=== PATIENT | female | born 1965 | race Caucasian/White ===

== ENCOUNTER 2017-10-14 11:06 | Emergency (ER) | payer OTHER ==
[~2017-10-14] VITALS: Ht 157.5 cm; Wt 79.0 kg
[2017-10-14 11:10] VITALS: Ht 157.5 cm; Wt 79.0 kg
[2017-10-14] MEDS ORDERED: SODIUM CHLORIDE 0.9% 1000ML 500 ML IV STA (11:24)
[2017-10-14] MEDS ORDERED: DOCUSATE SODIUM/SENNA 50/8.6MG TAB PO ONE (11:30)
[2017-10-14] MEDS ORDERED: SUMA100T16 PO (11:35)
[2017-10-14] MEDS ORDERED: LINA1CAP2 PO (11:35)
[2017-10-14] MEDS ORDERED: CYCL10TA6 PO (11:35)
[2017-10-14] MEDS ORDERED: TOPI50TA16 PO (11:35)
[2017-10-14] MEDS ORDERED: PRLSR20 PO (11:35)
[2017-10-14] MEDS ORDERED: MELO7.5T5 PO (11:35)
[2017-10-14] MEDS ORDERED: PROP80TA2 PO (11:35)
[2017-10-14] MEDS ORDERED: EFF75 PO (11:35)
[2017-10-14 11:51] LABS: BASO % 0.6 %; BASO ABS # 0.03 K/uL (0-0.2); EOS % 2.7 %; EOS ABS # 0.13 K/uL (0-0.5); HEMATOCRIT 39.5 % (37-47); HEMOGLOBIN 13.1 g/dL (12.0-16.0); IG# 0.02 K/uL (0.00-0.02); LYMPH % 18.5 %; MEAN CELL VOLUME 92.7 fL (80-100); MEAN CORPUSCULAR HEMOGLOBIN 30.8 pg (25-34); MEAN CORPUSCULAR HGB CONC 33.2 g/dl (32-36); MEAN PLATELET VOLUME 9.7 fL (7.4-10.4); MONO % 8.2 %; NEUT % 69.6 %; NEUT ABS # 3.39 K/uL (1.4-6.5); PLATELET COUNT 242 K/uL (130-400); RED CELL DISTRIBUTION WIDTH CV 13.6 % (11.5-14.5); RED CELL DISTRIBUTION WIDTH SD 45.3 fL (36.4-46.3); WHITE BLOOD COUNT 4.87 K/uL (4.8-10.8)
--- NOTE | 2017-10-14 11:57 | DIAGNOSTIC IMAGING REPORT ---
CHEST ONE VIEW PORTABLE HISTORY: 52 years-old Female ABDOMINAL PAIN/GI acute generalized abdominal pain COMPARISON: None available TECHNIQUE: Portable AP view of the chest FINDINGS: Cardiac silhouette is within normal limits. Linear subsegmental lateral left midlung and left basilar opacities are compatible with atelectasis/scarring. No pneumothorax, pleural effusion, focal airspace consolidation or overt pulmonary edema. Bones of the chest appear grossly intact. Cholecystectomy clips noted. IMPRESSION: No acute process. The above report was generated using voice recognition software. It may contain grammatical, syntax or spelling errors. Electronically signed by: Cosme Baeza M.D. 10/14/2017 11:55 AM Dictated Date/Time: 10/14/2017 11:54 AM
[2017-10-14] MEDS ORDERED: OPTIRAY 320 IV PRN (12:00)
[2017-10-14] MEDS ORDERED: ACETAMINOPHEN 500 MG TAB PO STA (12:06)
[2017-10-14 12:14] LABS: CALCIUM 7.9 mg/dl (8.5-10.1); CREATININE 0.86 mg/dl (0.60-1.20); POTASSIUM 4.1 mmol/L (3.5-5.1)
[2017-10-14 12:15] LABS: TOTAL PROTEIN 6.4 gm/dl (6.4-8.2)
[2017-10-14] MEDS ORDERED: DICYCLOMINE HCL 10 MG/ML 2 ML AMP IM ONE (12:15)
--- NOTE | 2017-10-14 13:45 | EMERGENCY ROOM VISIT NOTE ---
History Report prepared by Zachary: Gonzalo Cox Under the Supervision of: Dr. Joaquín Guidry M.D. First contact with patient: 11:16 Chief Complaint: GI ASSESSMENT Stated Complaint: NOT BEEN ABLE TO HAVE BOWEL MOVEMENT IN A MONTH History of Present Illness The patient is a 52 year old female who presents to the Emergency Room with complaints of constant constipation beginning a month ago. The patient states that she has not been able to have a bowel movement for the last month. She notes that she went to the emergency department at the end of September and had lab work and imaging done. She reports that she was diagnosed with constipation and had two enemas done while in the emergency department with no relief of her constipation. She reports that she has also tried Dulcolax and drinking prune juice with no relief of her constipation. She also complains of vomiting, abdominal pain, back pain, and a decreased appetite. She denies any urinary symptoms, fever, and abdominal distension. The patient states that she has a history of diverticulitis. She notes that she also has a family history of diverticulitis. She rates her pain as a 10/10. Source of History: patient Onset: a month ago Position: abdomen Symptom Intensity: 10/10 Quality: other (constipation) Timing: constant Associated Symptoms: + vomiting, + abdominal pain, + back pain, No fevers, No urinary symptoms Note: The patient also complains of a decreased appetite. She denies any abdominal distension. Review of Systems See HPI for pertinent positives & negatives. A total of 10 systems reviewed and were otherwise negative. Past Medical & Surgical Medical Problems: (1) Constipation (2) Diverticulitis Family History FH: diverticulitis Social History Smoking Status: Never Smoker Marital Status: single Occupation Status: unemployed Current/Historical Medications Scheduled Cyclobenzaprine Hcl (Flexeril), 10 MG PO HS Linaclotide (Linzess), 290 MCG PO DAILY Meloxicam (Mobic), 7.5 MG PO DAILY Omeprazole (Prilosec), 20 MG PO DAILY Ondasetron Odt (Zofran Odt), 4-8 MG SL Q6H Propranolol (Inderal), 80 MG PO DAILY Sennosides-Docusate Sodium (Senokot S), 2 TAB PO BID Sumatriptan Succinate (Imitrex), 100 MG PO PRN Topiramate (Topamax), 50 MG PO BID Venlafaxine Hcl (Effexor), 75 MG PO DAILY Allergies Coded Allergies: Ketorolac Tromethamine (Unverified Allergy, Intermediate, MIGRAINE, ) Physical Exam Vital Signs Date Time Temp Pulse Resp B/P (MAP) Pulse Ox O2 Delivery O2 Flow Rate FiO2 10/14/17 15:46 36.4 53 18 143/87 98 10/14/17 15:39 53 18 143/87 98 Room Air 10/14/17 14:28 58 16 153/94 98 Room Air 10/14/17 13:22 59 16 110/78 98 Room Air 10/14/17 11:10 36.4 89 18 116/85 97 Room Air Physical Exam GENERAL: Patient is in no acute distress. HEENT: No acute trauma, normocephalic atraumatic, mucous membranes moist, no nasal congestion, no scleral icterus. NECK: No stridor, no adenopathy, no meningismus, trachea is midline. LUNGS: Clear to auscultation bilaterally, no wheeze, no rhonchi, breath sounds equal. HEART: Without murmurs gallops or rubs, regular rate and rhythm. ABDOMEN: Soft, moderately tender in both lower quadrants, bowel sounds positive , no hernias, no peritonitis. EXTREMITIES: No cyanosis or edema, full range of motion of all the joints without pain or difficulty, no signs for acute trauma. NEUROLOGIC: Oriented x 3, no acute motor or sensory deficits, no focal weakness. SKIN: No rash, no jaundice, no diaphoresis. Medical Decision & Procedures ER Provider Diagnostic Interpretation: Radiology results as stated below per my review and radiologist interpretation: CHEST ONE VIEW PORTABLE FINDINGS: Cardiac silhouette is within normal limits. Linear subsegmental lateral left midlung and left basilar opacities are compatible with atelectasis/scarring. No pneumothorax, pleural effusion, focal airspace consolidation or overt pulmonary edema. Bones of the chest appear grossly intact. Cholecystectomy clips noted. IMPRESSION: No acute process. The above report was generated using voice recognition software. It may contain grammatical, syntax or spelling errors. Electronically signed by: Cosme Baeza M.D. 10/14/2017 11:55 AM ABDOMEN AND PELVIS CT WITH IV AND ORAL CONTRAST FINDINGS: Linear subsegmental atelectasis/scarring of the lung bases. No pneumatosis or pneumoperitoneum. Imaged inferior cardiac chambers are unremarkable. Prior cholecystectomy. Liver, spleen, pancreas and adrenal glands are within normal limits. Kidneys, ureters and bladder are unremarkable. Uterus and right adnexa are within normal limits. 8 mm cyst about the left ovary. Aorta is normal in course and caliber without aneurysm. No bulky adenopathy. Small duodenal diverticulum. No bowel obstruction. Extensive colonic diverticulosis without diverticulitis. Mild wall thickening throughout the sigmoid colon suggests chronic hypertrophy changes. Mild wall thickening or partial distention of the transverse colon. No pericolonic inflammatory changes. Normal appendix. No ascites or mesenteric inflammatory changes. Small fat filled periumbilical hernia, diastases 1.4 cm. Soft tissues are within normal limits. Severe facet arthrosis at L5-S1. 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 IMPRESSION: 1. Underdistention or mild wall thickening of the transverse colon without associated pericolonic inflammatory changes. Correlate clinically to exclude a mild colitis. 2. Colonic diverticulosis without diverticulitis. 3. Normal appendix. 4. Prior cholecystectomy. Electronically signed by: Cosme Baeza M.D. 10/14/2017 2:49 PM Laboratory Results 10/14/17 11:36 Red Blood Count 4.26, Mean Corpuscular Volume 92.7, Mean Corpuscular Hemoglobin 30.8, Mean Corpuscular Hemoglobin Concent 33.2, Mean Platelet Volume 9.7, Neutrophils (%) (Auto) 69.6, Lymphocytes (%) (Auto) 18.5, Monocytes (%) (Auto) 8.2, Eosinophils (%) (Auto) 2.7, Basophils (%) (Auto) 0.6, Neutrophils # (Auto) 3.39, Lymphocytes # (Auto) 0.90, Monocytes # (Auto) 0.40, Eosinophils # (Auto) 0.13, Basophils # (Auto) 0.03 10/14/17 11:36 Test 10/14/17 11:36 10/14/17 12:20 White Blood Count 4.87 K/uL (4.8-10.8) Red Blood Count 4.26 M/uL (4.2-5.4) Hemoglobin 13.1 g/dL (12.0-16.0) Hematocrit 39.5 % (37-47) Mean Corpuscular Volume 92.7 fL (80-100) Mean Corpuscular Hemoglobin 30.8 pg (25-34) Mean Corpuscular Hemoglobin Concent 33.2 g/dl (32-36) Platelet Count 242 K/uL (130-400) Mean Platelet Volume 9.7 fL (7.4-10.4) Neutrophils (%) (Auto) 69.6 % Lymphocytes (%) (Auto) 18.5 % Monocytes (%) (Auto) 8.2 % Eosinophils (%) (Auto) 2.7 % Basophils (%) (Auto) 0.6 % Neutrophils # (Auto) 3.39 K/uL (1.4-6.5) Lymphocytes # (Auto) 0.90 K/uL (1.2-3.4) Monocytes # (Auto) 0.40 K/uL (0.11-0.59) Eosinophils # (Auto) 0.13 K/uL (0-0.5) Basophils # (Auto) 0.03 K/uL (0-0.2) RDW Standard Deviation 45.3 fL (36.4-46.3) RDW Coefficient of Variation 13.6 % (11.5-14.5) Immature Granulocyte % (Auto) 0.4 % Immature Granulocyte # (Auto) 0.02 K/uL (0.00-0.02) Anion Gap 4.0 mmol/L (3-11) Est Creatinine Clear Calc Drug Dose 72.8 ml/min Estimated GFR () 88.8 Estimated GFR (Non- 76.6 BUN/Creatinine Ratio 11.2 (10-20) Lactic Acid Level 1.5 mmol/L (0.4-2.0) Calcium Level 7.9 mg/dl (8.5-10.1) Magnesium Level 2.3 mg/dl (1.8-2.4) Total Bilirubin 0.2 mg/dl (0.2-1) Aspartate Amino Transf (AST/SGOT) 12 U/L (15-37) Alanine Aminotransferase (ALT/SGPT) 14 U/L (12-78) Alkaline Phosphatase 64 U/L (45-117) Total Protein 6.4 gm/dl (6.4-8.2) Albumin 3.0 gm/dl (3.4-5.0) Globulin 3.4 gm/dl (2.5-4.0) Albumin/Globulin Ratio 0.9 (0.9-2) Lipase 489 U/L (73-393) Urine Color YELLOW Urine Appearance CLEAR (CLEAR) Urine pH 7.0 (4.5-7.5) Urine Specific [place] 1.013 (1.000-1.030) Urine Protein NEG (NEG) Urine Glucose (UA) NEG (NEG) Urine Ketones NEG (NEG) Urine Occult Blood NEG (NEG) Urine Nitrite NEG (NEG) Urine Bilirubin NEG (NEG) Urine Urobilinogen NEG (NEG) Urine Leukocyte Esterase NEG (NEG) Laboratory results reviewed by me. Medications Administered Medications (Trade) Dose Ordered Sig/Brandon Route Start Time Stop Time Status Last Admin Dose Admin Sodium Chloride 500 ml @ 999 mls/hr Q31M STAT IV 10/14/17 11:24 10/14/17 11:54 DC 10/14/17 11:35 999 MLS/HR Senna/Docusate Sodium (Senokot S Tab) 2 tab NOW ONCE PO 10/14/17 11:30 10/14/17 11:31 DC 10/14/17 11:32 2 TAB Acetaminophen (Tylenol Tab) 1,000 mg NOW STAT PO 10/14/17 12:06 10/14/17 12:07 DC 10/14/17 12:15 1,000 MG Dicyclomine HCl (Bentyl Inj) 20 mg NOW ONCE IM 10/14/17 12:15 10/14/17 12:16 DC 10/14/17 12:17 20 MG ED Course 1118: The patient was evaluated in room C2. A complete history and physical exam was performed. 1124: Sodium Chloride 500 ml @ 999 mls/hr IV 1130: Senna/Docusate Sodium 2tab PO 1206: Acetaminophen 1000mg PO 1215: Bentyl Inj 20mg IM 1458: I reevaluated and updated the patient and her friends. I called out to [facility]. 1503: I discussed the patient's case with Dr. Lara - [facility]. She recommends a better bowel regimen. 1510: I performed a PDMP search on the patient. 1522: Reevaluated the patient. Discussed results and discharge instructions: She verbalized understanding and agreement. The patient is ready for discharge. Medical Decision Differential diagnoses include: diverticulitis, colitis, appendicitis, constipation, UTI, tumor, pancreatitis, hernia, and musculoskeletal pain. There is no leukocytosis or concerning anemia. No significant electrolyte abnormality, kidney failure or hepatitis. Lipase is slightly elevated but not high enough to diagnose pancreatitis. Urinalysis does not show infection. Lactic acid level is not elevated making bowel ischemia less likely. Chest film does not show pneumonia or free air. No mediastinal widening. Abdominal and pelvis CT shows some mild constipation, no bowel obstruction, no tumor or mass. There was some thickening of the transverse colon of unknown significance. No diverticulitis. Patient received IM Bentyl for discomfort. She was given oral Tylenol. She received IV saline and oral Senokot. I talked with the patient. I discussed the case with [facility] consultant. Patient is being discharged with a better bowel regimen. Tylenol for pain. Zofran for nausea. She will be on Senokot and MiraLAX. She is going to follow with GI, she will call on Monday to october be up her appointment. The patient was encouraged to return for fever or vomiting or worsening symptoms. At this point , the cause for her entire presentation is unclear. GI follow-up is recommended. [place] Drug Monitoring Program Search Results: patient reviewed within database, no issues identified Drug Monitoring Findings: The patient's last prescription was filled 07/23/2017. Medication Reconcilliation Current Medication List: was personally reviewed by me Blood Pressure Screening Patient's blood pressure: Elevated blood pressure Blood pressure disposition: Referred to PCP Consults Time Called: [phone] [facility] Phys[facility] Returned Call: [phone] I discussed the patient's case with Dr. Lara. She recommends a better bowel regimen. Impression Primary Impression: Lower abdominal pain Scribe Attestation The scribe's documentation has been prepared under my direction and personally reviewed by me in its entirety. I confirm that the note above accurately reflects all work, treatment, procedures, and medical decision making performed by me. Departure Information Dispostion Home / Self-Care Prescriptions Ondasetron Odt (ZOFRAN ODT) 4 Mg Tab 4-8 MG SL Q6H for Nausea, #15 TAB Prov: Joaquín Guidry M.D. 10/14/17 Sennosides-Docusate Sodium (SENOKOT S) 1 Tab Tab 2 TAB PO BID, #30 TAB 5 Refills Prov: Joaquín Guidry M.D. 10/14/17 Referrals No Doctor, Assigned (PCP) Forms HOME CARE DOCUMENTATION FORM, IMPORTANT VISIT INFORMATION Patient Instructions My [facility] Additional Instructions tart Senokot S--2 tab morning and night use miralax 1 heaping capfull in 8 oz of liquid 2x per day for now--may decrease to just 1 time per day as stools soften and become looser tylenol for pain zofran 1-2 tab every 6 hours for nausea return for fever or if worsening call GI monday to talk about getting your appointment moved up
--- NOTE | 2017-10-14 14:50 | DIAGNOSTIC IMAGING REPORT ---
ABDOMEN AND PELVIS CT WITH IV AND ORAL CONTRAST CT DOSE: 638.44 mGy.cm HISTORY: Acute generalized abdominal pain ABDOMINAL PAIN/GI--?DIVERTICULITIS--GIVE PO AND IV CONTRAST TECHNIQUE: Multiaxial CT images of the abdomen and pelvis were performed following the use of intravenous and oral contrast. A dose lowering technique was utilized adhering to the principles of ALARA. COMPARISON STUDY: None. FINDINGS: Linear subsegmental atelectasis/scarring of the lung bases. No pneumatosis or pneumoperitoneum. Imaged inferior cardiac chambers are unremarkable. Prior cholecystectomy. Liver, spleen, pancreas and adrenal glands are within normal limits. Kidneys, ureters and bladder are unremarkable. Uterus and right adnexa are within normal limits. 8 mm cyst about the left ovary. Aorta is normal in course and caliber without aneurysm. No bulky adenopathy. Small duodenal diverticulum. No bowel obstruction. Extensive colonic diverticulosis without diverticulitis. Mild wall thickening throughout the sigmoid colon suggests chronic hypertrophy changes. Mild wall thickening or partial distention of the transverse colon. No pericolonic inflammatory changes. Normal appendix. No ascites or mesenteric inflammatory changes. Small fat filled periumbilical hernia, diastases 1.4 cm. Soft tissues are within normal limits. Severe facet arthrosis at L5-S1. 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 IMPRESSION: 1. Underdistention or mild wall thickening of the transverse colon without associated pericolonic inflammatory changes. Correlate clinically to exclude a mild colitis. 2. Colonic diverticulosis without diverticulitis. 3. Normal appendix. 4. Prior cholecystectomy. Electronically signed by: Cosme Baeza M.D. 10/14/2017 2:49 PM Dictated Date/Time: 10/14/2017 2:42 PM
[2017-10-14] MEDS ORDERED: SENN-65 PO (15:14)
[2017-10-14] MEDS ORDERED: ONDA4TAB10 SL (15:14)
[2017-10-14 15:46] VITALS: BP 143/87; PULSE 53; TEMP 36.4; O2SAT 98
== END 2017-10-14 15:47 | disposition home or self-care (01) ==
LOC: C.EDB 11:10 → C.EDC 15:47
DX: K59.00 Constipation, unspecified (principal); K57.92 Diverticulitis of intestine, part unspecified, without perforation or abscess without bleeding; Z83.79 Family history of other diseases of the digestive system; Z79.899 Other long term (current) drug therapy; Z88.8 Allergy status to other drugs, medicaments and biological substances